=== PATIENT | male | born 1940 | race Caucasian/White ===

== ENCOUNTER 2016-12-04 05:53 | Inpatient (IN) | payer MEDICARE, OTHER ==
--- OUTSIDE RECORDS SUMMARY | 2016-12-04 05:57 | XMS REPORT | Continuity of Care Document ---
:1940 Author Organization [facility] ([facility]) Address [address] [place] [address] Phone [phone] Care Team Providers Name Role Phone Robbie Zarate Primary Care Provider [phone] Source Comments This disclosure is being made pursuant to the Care Everywhere program, applicable federal and state laws, and may not contain all informaitonavailable regarding this patient.[facility] ([facility]) Active Allergies and Adverse Reactions Allergen Noted Date Severity Reactions Comments Bee Stings Angioedema Throat swells up Bupropion Urticaria (Hives) Iodine Angioedema Zinc 12/08/2014 Unknown Current Medications Prescription Sig. Disp. Refills Start Date End Date Status lisinopril 5 mg tablet Take 5 mg by mouth 11/25/2013 Active daily SERTraline 25 mg tablet Take 25 mg by mouth 11/25/2013 Active daily triamcinolone 0.1 % apply by topical 11/25/2013 Active cream route 2 times every day a thin layer to the affected area(s) zolpiDEM (AMBIEN) 10 mg Take 10 mg by mouth 09/03/2008 Active tablet as instructed atorvastatin 10 mg Take 10 mg by mouth Active tablet every evening. esomeprazole 40 mg EC Take 40 mg by mouth Active capsule daily. meloxicam 7.5 mg tablet Take 7.5 mg by mouth Active daily. Active Problems Problem Noted Date Carotid arterial disease 12/04/2014 Overview: Formatting of this note may be different from the original. VASCULAR: Carotid Duplex (No evidence of stenosis bilaterally) - 08/23/2007 Carotid Duplex (Mild Disease in Bilateral ICAs, Vertebral: Bilateral Antegrade Flow) - 09/08/2008 Aortic stenosis 12/04/2014 Overview: Formatting of this note may be different from the original. ECHO/MUGA: Echo (LVSF normal, moderate MR, moderate AR) - 08/23/2007 Echo (LV normal, mild , mild-mod MR) - 11/18/2009 Echo (EF 0.70 (70%), Est RVSP 34 mmHg) - 08/17/2013 Unspecified closed fracture of ankle 10/03/2001 Coronary artery disease Overview: Formatting of this note may be different from the original. 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, dilated proximal aortic root ( moderate)) - 05/21/2006 ECHO/MUGA: Echo (LVSF normal, moderate MR, moderate AR) - 08/23/2007 Echo (LV normal, mild , mild-mod MR) - 11/18/2009 Echo (EF 0.70 (70%), Est RVSP 34 mmHg) - 08/17/2013 STRESS TESTS: Marcial MPI (EF 0.68, Normal study) - 11/11/2012 VASCULAR: Carotid Duplex (No evidence of stenosis bilaterally) - 08/23/2007 Carotid Duplex (Mild Disease in Bilateral ICAs, Vertebral: Bilateral Antegrade Flow) - 09/08/2008 Hypertension Most Recent Encounters Date Type Specialty Providers Description 09/12/2016 Lab Requisition Pathology [facility] Dx: Neoplasm of uncertain behavior of skin Social History Tobacco Use Types Packs/Day Years Used Date Former Smoker 30 Last Filed Vital Signs Vital Sign Reading Time Taken Blood Pressure 140/82 12/21/2015 9:22 AM CDT Pulse 60 12/21/2015 9:22 AM CDT Temperature - - Respiratory Rate - - Height 1.854 m (6' 0.99") 12/21/2015 9:22 AM CDT Weight 104.8 kg (231 lb 0.7 oz) 12/21/2015 9:22 AM CDT Body Mass Index 30.49 12/21/2015 9:22 AM CDT Oxygen Saturation - - Plan of Care Date Type Specialty Providers Description 02/13/2017 Appointment Heart and Vascular Kristi Foster MD Subj: Appointment [address] [place] [address] [phone] (Fax) Health Maintenance Due Date Last Done Comments Hepatitis B Vaccine (1 of 3 - Primary Series) 1940 Tdap Vaccine 1953 Lipid Disorder Screening 1960 Td Vaccine 1960 Colonoscopy 07/05/1992 Prostate Cancer Screening 1992 Zoster Vaccine 2002 Pneumococcal Vaccine (1 of 2 - PCV13) 2007 Influenza Vaccine: Seasonal (Season Ended) 2017 Results from Last 3 Months DERMATOPATHOLOGY EXAM (09/08/2016 10:30 AM) Component Value Range Case Report Surgical Pathology Case: [id number] Authorizing Provider:[facility] Collected: 09/08/2016 10:30 AM Pathologist: Candace Brown MD Received:09/12/2016 02:18 PM Specimen:Skin, other, specify, Nose Diagnosis Skin, nose, 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 I have personally reviewed this case and edited the report as necessary. Clinical Information Tissue source/site: Skin shave nose. Pertinent clinical history and findings: 0.2 cm erythematous papule. Clinical differential diagnosis: BCC vs SCC. Gross Description A.Received in formalin, in a container labeled Jordenbri Wes D, date of , and "Nose", is a 0.5 x 0.5 x 0.1 cm lemons shave biopsy. The specimen is inked, bisected and submitted entirely in A1. AJF/rls Microscopic Description Sections show a full thickness proliferation of atypical keratinocytes associated with overlying compact hyperkeratosis and parakeratosis.Margins appear uninvolved in the plane of sectioning. Performed by:Gonzalo Frank DO, R1/rls Specimen Skin - Skin, other, specify
[2016-12-04] MEDS ORDERED: MORPHINE SULFATE 15 MG TABLET.SA PO PRN (06:00)
[2016-12-04] MEDS ORDERED: ceFAZolin SODIUM 1 GM VIAL IV PRN (06:00)
[2016-12-04] MEDS ORDERED: RINGERS SOLUTION,LACTATED 1,000 ML IV PRN (06:00)
[2016-12-04] MEDS ORDERED: RINGERS SOLUTION,LACTATED 1,000 ML IV ONE (07:40)
[2016-12-04] MEDS ORDERED: diphenhydrAMINE HCL 50 MG/ML VIAL IV PRN ×2 (08:36→09:46)
[2016-12-04] MEDS ORDERED: HYDROmorphone HCL 1 MG/ML DISP.SYRIN IV PRN ×2 (08:36→09:46)
[2016-12-04] MEDS ORDERED: PROMETHAZINE HCL 12.5 MG in DEXTROSE 5 % IN WATER 50 ML IV PRN ×2 (08:36)
[2016-12-04] MEDS ORDERED: NALOXONE HCL 0.4 MG/ML VIAL IV PRN (08:36)
[2016-12-04] MEDS ORDERED: ONDANSETRON HCL/PF 2 MG/ML VIAL IV PRN ×2 (08:36→09:46)
[2016-12-04] MEDS: ROPIVACAINE HCL/PF 100 MG, KETOROLAC TROMETHAMINE 30 MG, EPINEPHrine 0.2 MG in NORMAL S... IJ PRN ×3 (08:52→09:40)
[2016-12-04] MEDS: TRANEXAMIC ACID 1,000 MG in NORMAL SALINE 100 ML IV PRN ×2 (08:53→09:18)
[2016-12-04] MEDS ORDERED: ACETAMINOPHEN 500 MG TABLET PO PRN (09:46)
[2016-12-04] MEDS ORDERED: ZOLPIDEM TARTRATE 5 MG TABLET PO PRN (09:46)
[2016-12-04] MEDS ORDERED: MAG HYDROX/ALUMINUM HYD/SIMETH 30 ML UDC PO PRN (09:46)
[2016-12-04] MEDS ORDERED: MAGNESIUM HYDROXIDE 30 ML UDC PO PRN (09:46)
[2016-12-04] MEDS ORDERED: PROMETHAZINE HCL 5 MG in DEXTROSE 5 % IN WATER 50 ML IV PRN ×2 (09:46)
[2016-12-04] MEDS ORDERED: TRIAMCINOLONE ACETONIDE 15 APPL TUBE TP PRN (09:48)
[2016-12-04] MEDS ORDERED: EPINEPHrine 0.3 MG DISP.SYRIN IM PRN (09:48)
--- NOTE | 2016-12-04 09:51 | OR ---
Operative Report - Dictated Report Narrative: Date: 12/04/2016 Preoperative diagnosis: Left hip degenerative joint disease. Postoperative diagnosis: Left hip degenerative joint disease. Procedure: Left Total hip arthroplasty. Surgeon: Farrukh Hsu M.D. Sales Recruiting Coordinator: Josh Valdez PA-C Anesthesia: Spinal and local periarticular joint injection. Complications: None Specimens: Bone for disposal. Estimated blood loss: 150 milliliters. Retained implants: Depuy [place] size 7 femoral stem high offset. Size 40 millimeter outside diameter 3-hole [place] Gription acetabular cup. 60 millimeter outside by 40 millimeter inside diameter highly cross-linked acetabular liner. 40 millimeter diameter +5 millimeter cobalt chromium femoral head. Cancellous 6.5mm screw 35 millimeter length Indications: Mr. Das is a 76-year-old gentleman who has had long-standing left hip pain. This patient was followed in my clinic for period of time with significant complaints of left hip pain consistent with arthritic changes. He failed conservative measures including but not limited to activity modification , passage of time, medications, and other conservative measures. Patient wished to proceed with surgical treatment. The risks, benefits, and alternatives were discussed in clinic. The risks of , blood clots, bleeding, infection, nerve/tendon blood vessel/ injury, malposition of components, dislocation and/or instability of joint, intraoperative fracture, postoperative limited range of motion, persistent pain, failure of components, and need for additional procedures. Patient wished to proceed. Consent was obtained after answering all questions. Procedure: After marking the correct extremity on the floor, the patient was taken to the operating room. A timeout was performed. IV antibiotics consisting of Ancef were administered prior to the procedure. A spinal anesthetic was induced by anesthesia. A Woodard catheter was inserted. The patient was then transitioned to a lateral position on a well-padded pegboard. An axillary roll was placed. The head was in neutral position. The non- operative down leg was well-padded with SCD and DISHA hose in place. The arms were supported and padded to protect from any undue pressure on the bony prominences and nerves. A well-padded anterior and posterior pelvic and chest posts were secured in order to maintain a stable position of the pelvis. This was placed so that the pelvis was perpendicular to the floor. The body was in line with the pelvis. Once it was felt that we had protected all the bony prominences and the patient was well secured with a safety belt as well, the leg was pre-scrubbed with alcohol, prepped and draped in a standard sterile fashion. A standard anterior lateral hip incision was marked out over the greater trochanter. Ioban drapes were then placed. The skin incision was then made. Sharp dissection with a scalpel utilizing cautery for hemostasis was carried out down to the gluteus and iliotibial band fascia. This was split in line with the skin incision. The greater trochanter bursa was excised. The anterior and posterior margins of the abductor tendon were identified. The anterior 1/2-1/3 of the tendon was tagged and reflected off the greater trochanter leaving a sleeve of tendon for repair at the completion of the case. This exposed the underlying hip joint capsule. A limb length stitch was placed in the skin and referencedd off a debbie on the greater trochanter for evaluation of intraoperative limb lengths. An inverted T-type capsulotomy was made extending this up to the brim of the acetabulum. Using Homans to assist with elevation of the soft tissues off the anterior, superior, and inferior aspects of the femoral neck, the hip was then placed in a figure 4 position and the femoral head was dislocated. With the leg in an externally rotated and adducted position, the cutting flag was utilized in order to debbie for a standard femoral neck cut approximately a fingerbreadth above the level of the lesser trochanter. This was done with reference to pre-operative films and overall alignment. This was done while protecting the surrounding soft tissues with Homans. The femoral head was then removed and sized for guidance on preparation of the acetabulum. It was noted that there was loss of articular cartilage on both the femoral head and weightbearing portions of the acetabulum. We then returned the leg to the table and turned our attention to the acetabulum. While protecting the surrounding soft tissues, the labrum and remaining tissue in the fovea were excised using a scalpel and cautery. A series of reamers up to size 60 millimeter were utilized to prepare the acetabulum. The final reamer had good purchase and exposed the bleeding subchondral bone. The acetabulum was then thoroughly irrigated ensuring that all bony and cartilaginous materials were removed, and the final acetabular shell was impacted into place. This was placed in approximately 45 degrees of abduction and 20 degrees of anteversion utilizing the outrigger and body axis for alignment. This had a good press fit. 1 6.5mm cancellous screw was placed in the superior posterior quadrant of the acetabulum. The shell was then thoroughly irrigated and the final polyethylene was impacted into place ensuring that it seated completely. This was then protected with a sponge while we returned our attention to the femur. With the leg in a figure 4 position, utilizing Homans for soft tissue protection , a box cutting osteotome, followed by Charnley awl, followed by serial reamers and broaches were utilized in order to prepare the femur. It was found that a size 7 broach gave good axial and rotational stability. The calcar reamer was utilized in order to clean up the cut edges. The proximal femur was visualized to ensure that there were no signs of fracture. A series of heads and necks were trialed. It was found that a high offset neck and a + 5 femoral head gave good overall stability. There was minimal longitudinal instability. With the leg in the position of sleep, the femoral head was well covered. Hip range of motion was able to reach full extension and external rotation to greater than 75 degrees prior to impingement along the posterior acetabulum. The hip was able to be flexed to greater than 90 degrees with internal rotation greater than 60 degrees prior to anterior impingement. The limb lengths were near equal based on comparison to the contralateral side and the prior placed limb length stitch. At this point it was felt these were the appropriately sized femoral components as well as neck and femoral head. The trial implants were removed. The femur was thoroughly irrigated. The final implants were impacted into place, and the hip was reduced. After ensuring that there was no damage to the proximal femur , the standard periarticular joint injection of ropivacaine, Toradol, and epinephrine were injected into the joint capsule and surrounding soft tissues. Anesthesia then administered intravenous tranexamic acid. The capsule was repaired with a single interrupted #1 Vicryl. The abductor tendon was repaired to the greater trochanter utilizing #5 Ethibond through drill holes. This was oversewn with #1 Vicryl. The fascia was closed with interrupted #1 Vicryl. The wounds were thoroughly irrigated as we closed in layers. The deep and subcutaneous fat layers were closed with 0 and 3-0 Vicryl respectively. The subcutaneous tissue was closed with a running 3-0 Vicryl and 3-0 Monocryl with Prineo Dermabond dressing. All sponge, needle, blade, and instrument counts were correct prior to closing the wounds. Sterile dressings consisting of 4 x 4 's, ABD, and tape were applied. The patient was awoken and transferred to her hospital bed and then to the postanesthesia care unit in stable condition. Postoperative condition: The plan is to admit to the medical/surgical inpatient floor postoperatively. There will be a projected 2 to 4 day hospital stay. Postoperatively 24 hours of IV antibiotics, pain control, physical therapy, occupational therapy, and medical comanagement will be utilized. Patient will be weightbearing as tolerated with anterior hip precautions. Postoperative films will be obtained in the recovery room.
[2016-12-04] MEDS: KETOROLAC TROMETHAMINE 15 MG/ML VIAL IV SCH ×3 (11:04→22:06)
[2016-12-04] MEDS: oxyCODONE HCL/ACETAMINOPHEN 1 TAB TABLET PO PRN ×3 (12:41→20:50)
[2016-12-04] MEDS: ceFAZolin SODIUM 1 GM in DEXTROSE 5 % IN WATER 100 ML IV SCH ×4 (13:47→20:45)
[2016-12-04] MEDS: DEXTROSE 5%-LACTATED RINGERS 1,000 ML IV PRN (19:11)
--- NOTE | 2016-12-04 20:29 | PN ---
<Pamela Sharma - Last Filed: 12/04/16 20:44> Subjective - Date and Time Seen Date: 12/04/16 Time: 20:29 Subjective Narrative: s/p Left total hip today. doing well. denies any pain. vomit x1 earlier in the day but denies any nausea now. denies needs. Objective - Review of Systems Generalized/Overall Review: Reports: No Symptoms Reported EENTM: Reports: No Symptoms Reported Respiratory: Reports: No Symptoms Reported Cardiac: Reports: No Symptoms Reported Abdominal: Reports: Vomiting. Denies: Hematemesis, Abdominal Pain, Bright blood from rectum Genitourinary Symptoms: Reports: No Symptoms Reported Musculoskeletal Complaints: Reports: No Symptoms Reported Neurological: Reports: No Symptoms Reported Skin: Reports: No Symptoms Reported Endocrine: Reports: No Symptoms Reported Misc: All systems neg except as marked - Vitals Vitals: Last Vital Signs Temp 36.3 C L 12/04/16 16:35 Pulse 55 L 12/04/16 16:35 Resp 16 12/04/16 16:35 BP 144/78 12/04/16 16:35 Pulse Ox 99 12/04/16 16:35 - Exam Constitutional: Present: Alert, Oriented x3, Cooperative, No distress ENT Exam: Present: hearing grossly normal Neck: Present: full range of motion, supple Breasts: Present: Exam deferred Respiratory: Present: chest non-tender, lungs clear, normal breath sounds, no respiratory distress, no accessory muscle use Cardiovascular/Chest: Present: normal peripheral pulses, regular rate, rhythm, no chest tenderness, no edema Abdomen: Present: soft, nontender, nondistended /Rectal: Present: Exam deferred Extremity: Present: no pedal edema, no calf tenderness Skin Exam: Present: normal color, warm/dry, no cyanosis Cauti Physician Documentation - Urinary Catheter Management Urethral (Woodard) Urethral Indwelling: Yes Reason for Continuing Indwelling Catheter: Surgical Procedure Date of Insertion: 12/04/16 Time of Insertion: 08:00 Assessment/Plan Plan Narrative: s/p left total hip - per orthopaedics, appreciate their help. - anticoagulation per ortho - PT/OT. - encourage ambulation - incentive spirometer q1 hour while awake - encourage turn, cough and deep breath - encourage optimal pain management HTN - vital signs q 4 hours Chronic stable medical conditions - CAD, CVA, HTN, HLD, ZITA, GERD Code status: full code VTE: lovenox / SCDs while in bed GI proph: protonix po. - Problems/Diagnosis (1) Status post total hip replacement, left Problem: Acute (2) CAD (coronary artery disease) Problem: Acute QualifierTitle: Coronary Disease-Associated Artery/Lesion type: [place] artery [place] vs. transplanted heart: [place] heart Associated angina: angina presence unspecified Qualified Code(s): I25.10 - Atherosclerotic heart disease of [place] coronary artery without angina pectoris (3) CVA (cerebral vascular accident) Problem: Chronic QualifierTitle: CVA mechanism: unspecified Qualified Code(s): I63.9 - Cerebral infarction, unspecified (4) HTN (hypertension) Problem: Chronic QualifierTitle: Hypertension type: essential hypertension Qualified Code( s): I10 - Essential (primary) hypertension (5) HLD (hyperlipidemia) Problem: Chronic QualifierTitle: Hyperlipidemia type: unspecified Qualified Code(s): E78.5 - Hyperlipidemia, unspecified (6) ZITA (obstructive sleep apnea) Problem: Chronic (7) GERD (gastroesophageal reflux disease) Problem: Chronic QualifierTitle: Esophagitis presence: esophagitis presence not specified Qualified Code(s): K21.9 - Gastro-esophageal reflux disease without esophagitis <Robbie Zarate - Last Filed: 12/06/16 07:17> Objective Objective Narrative: See my progress note for details - Vitals Vitals: Last Vital Signs Temp 36.9 C 12/06/16 06:32 Pulse 74 12/06/16 06:32 Resp 16 12/06/16 06:32 BP 150/83 12/06/16 06:32 Pulse Ox 90 12/06/16 06:32 - Abnormal Lab Findings Abnormal Lab Findings: Abnormal Lab Results 12/06/16 12/06/16 Range/Units 05:16 05:16 RBC 3.59 L (4.7-6.0) M/mm3 Hgb 10.9 L (13.5-18.0) gm/dL Hct 33.9 L (42.0-52.0) % Plt Count 121 L (150-450) K/mm3 MPV 9.9 H (6.0-9.5) fl Est GFR (Non-Af Amer) 59 L (60-130) mL/min Assessment/Plan - Problems/Diagnosis (1) Insomnia Problem: Chronic Qualifiers: Insomnia type: primary Qualified Code(s): F51.01 - Primary insomnia (2) History of total left hip arthroplasty Problem: Acute (3) CVA (cerebral vascular accident) Problem: Chronic Qualifiers: CVA mechanism: unspecified Qualified Code(s): I63.9 - Cerebral infarction, unspecified (4) GERD (gastroesophageal reflux disease) Problem: Chronic Qualifiers: Esophagitis presence: esophagitis presence not specified Qualified Code(s) : K21.9 - Gastro-esophageal reflux disease without esophagitis (5) HLD (hyperlipidemia) Problem: Chronic Qualifiers: Hyperlipidemia type: unspecified Qualified Code(s): E78.5 - Hyperlipidemia , unspecified (6) HTN (hypertension) Problem: Chronic Qualifiers: Hypertension type: essential hypertension Qualified Code(s): I10 - Essential (primary) hypertension (7) Depression Problem: Chronic Qualifiers: Depression Type: major depressive disorder Active/Remission status: in full remission (8) Discharge planning issues Problem: Acute
[2016-12-04] MEDS: MORPHINE SULFATE 15 MG TABLET.SA PO SCH (20:45)
[2016-12-04] MEDS: SENNOSIDES/DOCUSATE SODIUM 1 TAB TABLET PO SCH (20:53)
[2016-12-04] MEDS: ROSUVASTATIN CALCIUM 10 MG TABLET PO SCH (20:54)
[2016-12-04] MEDS ORDERED: SERTRALINE HCL 50 MG TABLET PO SCH (21:00)
--- NOTE | 2016-12-04 21:01 | PN ---
Subjective - Date and Time Seen Date: 12/04/16 Time: 16:45 Subjective Narrative: No complaints. Pain is tolerable. Denies CP/SOB. Does state that he has to move his feet all the time, which has occurred ever since he had his stroke and possibly since he started the sertraline. Objective - Review of Systems Generalized/Overall Review: Reports: No Symptoms Reported EENTM: Reports: No Symptoms Reported Respiratory: Reports: No Symptoms Reported Cardiac: Reports: No Symptoms Reported Abdominal: Reports: No Symptoms Reported Genitourinary Symptoms: Reports: No Symptoms Reported Musculoskeletal Complaints: Reports: No Symptoms Reported Neurological: Reports: No Symptoms Reported Skin: Reports: No Symptoms Reported Endocrine: Reports: No Symptoms Reported - Vitals Vitals: Last Vital Signs Temp 36.3 C L 12/04/16 16:35 Pulse 55 L 12/04/16 16:35 Resp 16 12/04/16 16:35 BP 144/78 12/04/16 16:35 Pulse Ox 99 12/04/16 16:35 - Exam Constitutional: Present: Alert, Oriented x3, No distress ENT Exam: Present: hearing grossly normal Respiratory: Present: normal breath sounds, no respiratory distress Cardiovascular/Chest: Present: regular rate, rhythm, edema Abdomen: Present: Normal bowel sounds, soft, nontender Extremity: Present: non-tender, no pedal edema, no calf tenderness Neurologic: Present: normal mood/affect, oriented x 3 Appearance: Present: appropriate appearance, appropriate insight Eye contact: Present: cooperative, good eye contact, normal speech Thoughts: Present: normal thought pattern, no apparent hallucination Cauti Physician Documentation - Urinary Catheter Management Urethral (Higgins) Urethral Indwelling: Yes Reason for Continuing Indwelling Catheter: Surgical Procedure Date of Insertion: 12/04/16 Time of Insertion: 08:00 Assessment /Plan - Assessment/Plan Assessment: Hypertension: stable no med changes. Depression: stable, possible SE of LE movement from sertraline. reduce to 12.5mg S/P LTHA: doing well post op. indwelling higgins. rehab per ortho. Insomnia: continue zolpidem Constipation: continue miralax Discharge planning: d/w home when rehab is going well and pt. able to ambulate well enough to be independent at home.
[2016-12-04] MEDS: SERTRALINE HCL 50 MG TABLET PO SCH (21:09)
[2016-12-04] MEDS: ZOLPIDEM TARTRATE 10 MG TABLET PO SCH (22:06)
[2016-12-05] MEDS: ceFAZolin SODIUM 1 GM in DEXTROSE 5 % IN WATER 100 ML IV SCH ×2 (02:29)
[2016-12-05] MEDS: oxyCODONE HCL/ACETAMINOPHEN 1 TAB TABLET PO PRN ×3 (02:29→22:09)
[2016-12-05] MEDS: KETOROLAC TROMETHAMINE 15 MG/ML VIAL IV SCH ×4 (04:21→22:09)
[2016-12-05] MEDS: DEXTROSE 5%-LACTATED RINGERS 1,000 ML IV PRN (04:22)
[2016-12-05 05:41] LABS: Hematocrit 33.3 % (42.0-52.0); Hemoglobin 10.7 gm/dL (13.5-18.0); Mean Cell Volume 94.3 fl (78-100); Mean Corpuscular Hemoglobin 30.3 pg (27-31); Mean Corpuscular Hgb Conc 32.1 g/dl (32-36); Mean Platelet Volume 10.4 fl (6.0-9.5); Platelet Count 122 K/mm3 (150-450); Red Blood Count 3.53 M/mm3 (4.7-6.0); Red Cell Distribution Width 13.8 % (11.5-14.0); White Blood Count 7.1 K/mm3 (4.0-10.5)
[2016-12-05 05:51] LABS: Anion Gap 7.1 mmol/L (6.8-13.8); BUN/Creatinine Ratio 13.9 (9.0-21.6); Calcium * 8.2 mg/dL (7.9-10.9); Carbon Dioxide 32.3 mmol/L (24-32.6); Estimated Creat Clear 65.5; Potassium 4.4 mmol/L (3.4-4.6)
[2016-12-05] MEDS: PANTOPRAZOLE SODIUM 40 MG TABLET.EC PO SCH (06:57)
--- NOTE | 2016-12-05 07:11 | PN ---
Subjective - Date and Time Seen Date: 12/05/16 Time: 07:01 Subjective Narrative: Pt. drowsy this am, but without complaint and no concerns by . He wakes up and responds to voice, but quickly closes eyes and rests again after answering questions. Denies CP/SOB/N/V or hip pain. Objective - Review of Systems Generalized/Overall Review: Reports: No Symptoms Reported EENTM: Reports: No Symptoms Reported Respiratory: Reports: No Symptoms Reported Cardiac: Reports: No Symptoms Reported Abdominal: Reports: No Symptoms Reported Genitourinary Symptoms: Reports: No Symptoms Reported Musculoskeletal Complaints: Reports: No Symptoms Reported Neurological: Reports: No Symptoms Reported Skin: Reports: No Symptoms Reported Endocrine: Reports: No Symptoms Reported - Vitals Vitals: Last Vital Signs Temp 36.4 C L 12/05/16 06:27 Pulse 58 L 12/05/16 06:27 Resp 16 12/05/16 06:27 BP 139/58 12/05/16 06:27 Pulse Ox 98 12/05/16 06:27 - Abnormal Lab Findings Abnormal Lab Findings: Abnormal Lab Results 12/05/16 12/05/16 Range/Units 05:00 05:00 RBC 3.53 L (4.7-6.0) M/mm3 Hgb 10.7 L (13.5-18.0) gm/dL Hct 33.3 L (42.0-52.0) % Plt Count 122 L (150-450) K/mm3 MPV 10.4 H (6.0-9.5) fl Random Glucose 122 H (70-110) mg/dL - Exam Constitutional: Present: Alert, Oriented x3, Cooperative, No distress ENT Exam: Present: hearing grossly normal Neck: Present: supple Respiratory: Present: lungs clear, normal breath sounds, no respiratory distress , no accessory muscle use Cardiovascular/Chest: Present: regular rate, rhythm, no murmur Abdomen: Present: Normal bowel sounds, soft, nontender, nondistended, no rebound tenderness, no hepatospenomegaly Extremity: Present: normal inspection, no pedal edema, no calf tenderness, normal capillary refill Skin Exam: Present: normal color, warm/dry Neurologic: Present: other - drowsy, but responsive to voice Appearance: Present: appropriate insight, no memory impairment Eye contact: Present: cooperative, decreased rate of speech Thoughts: Present: normal thought pattern, no apparent hallucination Cauti Physician Documentation - Urinary Catheter Management Urethral (Higgins) Urethral Indwelling: Yes Reason for Continuing Indwelling Catheter: Surgical Procedure Date of Insertion: 12/04/16 Time of Insertion: 08:00 Assessment/Plan - Problems/Diagnosis (1) Insomnia Problem: Chronic Qualifiers: Insomnia type: primary Qualified Code(s): F51.01 - Primary insomnia Narrative: continue zolpidem for now, but may hold this tonight to see how he does without it given the pain meds he's taking. (2) History of total left hip arthroplasty Problem: Acute Narrative: doing well post op, pain appears to be well controlled. will continue MsContin , though limit duration to 2 days. If drowsiness continues will stop this and just do prn IV morphine and oral percocet. Rehab per ortho, along with d/c of higgins. (3) CVA (cerebral vascular accident) Problem: Chronic Qualifiers: CVA mechanism: unspecified Qualified Code(s): I63.9 - Cerebral infarction, unspecified Narrative: doing well post CVA, no med changes at this time, no issues with this. (4) GERD (gastroesophageal reflux disease) Problem: Chronic Qualifiers: Esophagitis presence: esophagitis presence not specified Qualified Code(s) : K21.9 - Gastro-esophageal reflux disease without esophagitis Narrative: continue protonix unchanged (5) HLD (hyperlipidemia) Problem: Chronic Qualifiers: Hyperlipidemia type: unspecified Qualified Code(s): E78.5 - Hyperlipidemia , unspecified Narrative: continue crestor at 5mg (6) HTN (hypertension) Problem: Chronic Qualifiers: Hypertension type: essential hypertension Qualified Code(s): I10 - Essential (primary) hypertension Narrative: BP's variable, but overall are ok. no changes in medication at this time, continue lisinopril at 10mg daily. (7) Depression Problem: Chronic Qualifiers: Depression Type: major depressive disorder Active/Remission status: in full remission Narrative: will continue decreased sertraline at 12.5mg, consider stopping altogether. (8) Discharge planning issues Problem: Acute Narrative: discharge per ortho, depending on how he rehabs.
--- NOTE | 2016-12-05 08:11 | PN ---
Subjective - Date and Time Seen Date: 12/05/16 Time: 08:08 Subjective Narrative: Patient reports pain controlled. No nausea or vomiting. Reports feels "sleepy ". Reports did well getting up with PT this am. No complaints. Objective Objective Narrative: Up in chair. N/V intact PF/DF ankle LLE. Able to wiggle toes. Calves supple. Bandages C/D/I. - Vitals Vitals: Last Vital Signs Temp 36.4 C L 12/05/16 06:27 Pulse 58 L 12/05/16 06:27 Resp 16 12/05/16 06:27 BP 139/58 12/05/16 06:27 Pulse Ox 98 12/05/16 06:27 - Abnormal Lab Findings Abnormal Lab Findings: Abnormal Lab Results 12/05/16 12/05/16 Range/Units 05:00 05:00 RBC 3.53 L (4.7-6.0) M/mm3 Hgb 10.7 L (13.5-18.0) gm/dL Hct 33.3 L (42.0-52.0) % Plt Count 122 L (150-450) K/mm3 MPV 10.4 H (6.0-9.5) fl Random Glucose 122 H (70-110) mg/dL - Exam Constitutional: Present: Alert, Oriented x3, Cooperative, No distress Cauti Physician Documentation - Urinary Catheter Management Urethral (Woodard) Urethral Indwelling: Yes Date of Insertion: 12/04/16 Time of Insertion: 08:00 Assessment/Plan - Problems/Diagnosis (1) Anemia due to acute blood loss Problem: Acute Narrative: Asymptomatic. Recheck labs tomorrow. (2) CAD (coronary artery disease) Problem: Chronic Qualifiers: Coronary Disease-Associated Artery/Lesion type: [place] artery [place] vs. transplanted heart: [place] heart Associated angina: angina presence unspecified Qualified Code(s): I25.10 - Atherosclerotic heart disease of [place] coronary artery without angina pectoris (3) Status post total hip replacement, left Problem: Acute Narrative: PT, anticoagulation, pain control. (4) Depression Problem: Chronic Qualifiers: Depression Type: major depressive disorder Active/Remission status: in full remission (5) GERD (gastroesophageal reflux disease) Problem: Chronic Qualifiers: Esophagitis presence: esophagitis presence not specified Qualified Code(s) : K21.9 - Gastro-esophageal reflux disease without esophagitis (6) HLD (hyperlipidemia) Problem: Chronic Qualifiers: Hyperlipidemia type: unspecified Qualified Code(s): E78.5 - Hyperlipidemia , unspecified
[2016-12-05] MEDS ORDERED: ENOXAPARIN SODIUM 40 MG/0.4 ML SYRG SC SCH (08:46)
[2016-12-05] MEDS: MORPHINE SULFATE 15 MG TABLET.SA PO SCH ×2 (09:19→20:26)
[2016-12-05] MEDS: LISINOPRIL 10 MG TABLET PO SCH (09:19)
[2016-12-05] MEDS: RIVAROXABAN 20 MG TABLET PO SCH (09:19)
[2016-12-05] MEDS: POLYETHYLENE GLYCOL 3350 119 GM BTL PO SCH (09:19)
[2016-12-05] MEDS: SERTRALINE HCL 50 MG TABLET PO SCH (20:26)
[2016-12-05] MEDS: SENNOSIDES/DOCUSATE SODIUM 1 TAB TABLET PO SCH (20:27)
[2016-12-05] MEDS: ROSUVASTATIN CALCIUM 10 MG TABLET PO SCH (20:27)
[2016-12-05] MEDS: ZOLPIDEM TARTRATE 10 MG TABLET PO SCH (22:09)
[2016-12-06] MEDS: KETOROLAC TROMETHAMINE 15 MG/ML VIAL IV SCH (04:42)
[2016-12-06 05:23] LABS: Hematocrit 33.9 % (42.0-52.0); Hemoglobin 10.9 gm/dL (13.5-18.0); Mean Cell Volume 94.4 fl (78-100); Mean Corpuscular Hemoglobin 30.4 pg (27-31); Mean Corpuscular Hgb Conc 32.2 g/dl (32-36); Mean Platelet Volume 9.9 fl (6.0-9.5); Platelet Count 121 K/mm3 (150-450); Red Blood Count 3.59 M/mm3 (4.7-6.0); Red Cell Distribution Width 13.7 % (11.5-14.0); White Blood Count 7.3 K/mm3 (4.0-10.5)
[2016-12-06 05:35] LABS: Anion Gap 8.3 mmol/L (6.8-13.8); BUN/Creatinine Ratio 13.5 (9.0-21.6); Calcium * 8.4 mg/dL (7.9-10.9); Carbon Dioxide 31.3 mmol/L (24-32.6); Estimated Creat Clear 59.8; Potassium 4.6 mmol/L (3.4-4.6)
[2016-12-06] MEDS: PANTOPRAZOLE SODIUM 40 MG TABLET.EC PO SCH (06:46)
--- NOTE | 2016-12-06 07:24 | PN ---
Subjective - Date and Time Seen Date: 12/06/16 Time: 07:19 Subjective Narrative: Pain controlled, needs occ. prn percocet but otherwise has been doing ok with Ms Alona, though it makes him sleepy. Hasn't had a BM Objective - Review of Systems Generalized/Overall Review: Reports: Fatigue. Denies: Chills, Fever EENTM: Reports: No Symptoms Reported Respiratory: Reports: No Symptoms Reported. Denies: Shortness of Breath Cardiac: Reports: No Symptoms Reported. Denies: Chest Pain Abdominal: Reports: No Symptoms Reported Genitourinary Symptoms: Reports: No Symptoms Reported Musculoskeletal Complaints: Reports: No Symptoms Reported Neurological: Reports: No Symptoms Reported Skin: Reports: No Symptoms Reported Endocrine: Reports: No Symptoms Reported - Vitals Vitals: Last Vital Signs Temp 36.9 C 12/06/16 06:32 Pulse 74 12/06/16 06:32 Resp 16 12/06/16 06:32 BP 150/83 12/06/16 06:32 Pulse Ox 90 12/06/16 06:32 - Abnormal Lab Findings Abnormal Lab Findings: Abnormal Lab Results 12/06/16 12/06/16 Range/Units 05:16 05:16 RBC 3.59 L (4.7-6.0) M/mm3 Hgb 10.9 L (13.5-18.0) gm/dL Hct 33.9 L (42.0-52.0) % Plt Count 121 L (150-450) K/mm3 MPV 9.9 H (6.0-9.5) fl Est GFR (Non-Af Amer) 59 L (60-130) mL/min - Exam Constitutional: Present: Alert, Oriented x3, Cooperative, Well developed, No distress ENT Exam: Present: hearing grossly normal Neck: Present: supple Respiratory: Present: lungs clear, normal breath sounds, no respiratory distress , no accessory muscle use Cardiovascular/Chest: Present: regular rate, rhythm, systolic murmur - 2/6 LUSB Abdomen: Present: Normal bowel sounds, soft, nontender, nondistended, no rebound tenderness, no hepatospenomegaly Extremity: Present: no calf tenderness Skin Exam: Present: normal color, warm/dry Neurologic: Present: normal mood/affect, oriented x 3 Appearance: Present: appropriate appearance, appropriate insight, neat Eye contact: Present: cooperative, good eye contact, normal speech Thoughts: Present: normal thought pattern, no apparent hallucination Cauti Physician Documentation - Urinary Catheter Management Urethral (Woodard) Urethral Indwelling: No Date of Insertion: 12/04/16 Time of Insertion: 08:00 Date of Removal: 12/05/16 Time of Removal: 07: Assessment/Plan - Problems/Diagnosis (1) Insomnia Problem: Chronic Qualifiers: Insomnia type: primary Qualified Code(s): F51.01 - Primary insomnia Narrative: stable no changes (2) History of total left hip arthroplasty Problem: Acute Narrative: rehabbing well. continue per post op protocol and ortho (3) CVA (cerebral vascular accident) Problem: Chronic Qualifiers: CVA mechanism: unspecified Qualified Code(s): I63.9 - Cerebral infarction, unspecified Narrative: continue ASA daily (4) GERD (gastroesophageal reflux disease) Problem: Chronic Qualifiers: Esophagitis presence: esophagitis presence not specified Qualified Code(s) : K21.9 - Gastro-esophageal reflux disease without esophagitis Narrative: continue pantoprozole unchanged (5) HLD (hyperlipidemia) Problem: Chronic Qualifiers: Hyperlipidemia type: unspecified Qualified Code(s): E78.5 - Hyperlipidemia , unspecified Narrative: no changes (6) HTN (hypertension) Problem: Chronic Qualifiers: Hypertension type: essential hypertension Qualified Code(s): I10 - Essential (primary) hypertension Narrative: BP's running high at times. will continue to monitor for now, but because they are running in the 120's at times, I don't want to increase lisinopril quite yet. Will see him in close f/u outpt to see if they remain high. (7) Depression Problem: Chronic Qualifiers: Depression Type: major depressive disorder Active/Remission status: in full remission Narrative: stable continue 12.5mg dose for now. consider d/c at f/u outpt. (8) Discharge planning issues Problem: Acute Narrative: pt. medically is stable, can discharge home at any time ortho feels he is independent enough to go home. (9) Anemia due to acute blood loss Problem: Acute Narrative: stable post op. could be causing some increase in BP. will add PNV with iron to regimen. (10) Constipation Problem: Acute Qualifiers: Constipation type: slow transit constipation Qualified Code(s): K59.01 - Slow transit constipation Narrative: continue miralax. would give dose of MOM to him today (it is written prn)
[2016-12-06] MEDS ORDERED: PRENATAL VIT#96/FERROUS FUM/FA 1 TAB TABLET PO SCH (09:00)
[2016-12-06] MEDS: POLYETHYLENE GLYCOL 3350 119 GM BTL PO SCH (09:19)
[2016-12-06] MEDS: LISINOPRIL 10 MG TABLET PO SCH (09:21)
[2016-12-06] MEDS: RIVAROXABAN 20 MG TABLET PO SCH (09:21)
[2016-12-06 10:07] VITALS: BP 125/54
--- NOTE | 2016-12-06 13:06 | DS ---
(1) Anemia due to acute blood loss Problem: Acute (2) CAD (coronary artery disease) Problem: Chronic Qualifiers: Coronary Disease-Associated Artery/Lesion type: [place] artery [place] vs. transplanted heart: [place] heart Associated angina: angina presence unspecified Qualified Code(s): I25.10 - Atherosclerotic heart disease of [place] coronary artery without angina pectoris (3) Status post total hip replacement, left Problem: Acute (4) Depression Problem: Chronic Qualifiers: Depression Type: major depressive disorder Active/Remission status: in full remission (5) GERD (gastroesophageal reflux disease) Problem: Chronic Qualifiers: Esophagitis presence: esophagitis presence not specified Qualified Code(s) : K21.9 - Gastro-esophageal reflux disease without esophagitis (6) HLD (hyperlipidemia) Problem: Chronic Qualifiers: Hyperlipidemia type: unspecified Qualified Code(s): E78.5 - Hyperlipidemia , unspecified Description of Stay: Mr. Das was admitted to the floor after undergoing left total hip arthroplasty. Tolerated this well. Was admitted to the floor postoperatively for 24 hours of IV antibiotics, pain control, medical comanagement, and occupational and physical therapy. OT and PT were consulted to assist with activities of daily living and ambulation. Was made weightbearing as tolerated with range of motion as tolerated. Pain was initially controlled with IV regimen. This was transitioned to oral once tolerating a by mouth intake. Was resumed on home diet and medications. Had a Woodard catheter inserted and the operating room which was discontinued on postoperative day 1. A drain was placed intraoperatively into the knee which was discontinued on postoperative day 1. Lovenox SCD and DISHA hose were utilized for DVT prophylaxis. Vital signs remained stable to the hospital course. Serial labs were obtained which showed a final hemoglobin of 10.9 grams. BMP was reviewed and was stable. Physical examination throughout the hospital course showed an extremity that had sensation that was intact to light touch, palpable pulses, a benign wound, motor intact to the toes, ankle, and knee. Once an oral pain regimen was tolerated and physical therapy goals were met, it was felt that they were stable for discharge to home. Instructions: Continue with weightbearing as tolerated and range of motion as tolerated. It is OK to shower on the wound if it is not draining. If you note any drainage or for comfort you can cover with dry gauze and tape. Change every 2-3 days as needed. Continue with physical therapy. Continue with hip precautions. Resume home diet. Report any fever over 101.5 Fahrenheit, uncontrolled pain, increased drainage, foul odor of drainage, new or increased calf pain or shortness of breath, or any other significant complaints. A 325mg dialy aspirin will be started after finishing anticoagulation if not allergic. Continue with DISHA hose on the operative extremity until instructed otherwise. No driving until instructed otherwise. Follow up in approximately 10-14 days. Procedures Performed: see notes below List Procedures: Left total hip arthroplasty Discharge Disposition: Home self care Disposition: Home self-care Condition: Good Discharge Activity: Weight bearing Discharge Diet: Low fat/chol Referrals: Robbie Zarate MD [Primary Care Provider] - Additional Patient Instructions (free text): Follow up out patient Physical Therapy at [facility] on SundayDecember 08 at 100:00 am. Follow up Orthopedic appt. with Dr. Hsu December 21 at 9:00 am. Prescriptions (Any new or edited meds): Rivaroxaban [Xarelto] 10 mg PO DAILY #7 tablet Sennosides/Docusate Sodium [Senokot-S] 2 tab PO HS #30 tablet oxyCODONE HCL/ACETAMINOPHEN [Percocet 5 MG/325 MG] 2 tab PO Q4H PRN #90 tablet PRN Reason: Moderate Pain Complete Home Medications List: Complete Home Medication List: Polyethylene Glycol 3350 [Miralax] 17 gm PO DAILY 03/18/13 Triamcinolone Acetonide [Kenalog 0.025%] 1 appl TP BID PRN 03/18/13 Zolpidem Tartrate 10 mg PO HS 03/18/13 Sertraline HCl 25 mg PO HS 08/25/13 EPINEPHrine [Epipen 2-Cosmo] 0.3 mg IM ONCE PRN 04/20/15 Atorvastatin Calcium [Lipitor] 10 mg PO DAILY 10/31/16 Lisinopril [Zestril] 10 mg PO DAILY 10/31/16 Rivaroxaban [Xarelto] 10 mg PO DAILY #7 tablet 12/06/16 Sennosides/Docusate Sodium [Senokot-S] 2 tab PO HS #30 tablet 12/06/16 oxyCODONE HCL/ACETAMINOPHEN [Percocet 5 MG/325 MG] 2 tab PO Q4H PRN #90 tablet 12/06/16
[2016-12-06] MEDS: oxyCODONE HCL/ACETAMINOPHEN 1 TAB TABLET PO PRN (14:20)
== END 2016-12-06 14:45 | disposition home or self-care (01) | DRG 470 ==
LOC: MS 05:53
PROVIDERS: ADMIT Orthopaedic Surgery; ATTEND Orthopaedic Surgery
PROC: 0SRB0JZ Replacement of Left Hip Joint with Synthetic Substitute, Open Approach (ICD-10-PCS; principal; 2016-12-04 08:00)
DX: M16.12 Unilateral primary osteoarthritis, left hip (principal); D62 Acute posthemorrhagic anemia; F51.01 Primary insomnia; I25.10 Atherosclerotic heart disease of native coronary artery without angina pectoris; I10 Essential (primary) hypertension; E78.5 Hyperlipidemia, unspecified; K21.9 Gastro-esophageal reflux disease without esophagitis; F32.9 Major depressive disorder, single episode, unspecified; Z86.73 Personal history of transient ischemic attack (TIA), and cerebral infarction without residual deficits
CPT/HCPCS: 27130; 36415; 72170; 73502; 80048; 85027; 97110; 97116; 97161; 97165; 97530; 97535; J2405

== ENCOUNTER 2018-02-25 12:58 | Observation (INO) ==
[2018-02-25 13:35] LABS: Hematocrit 38.6 % (42.0-52.0); Hemoglobin 12.5 gm/dL (13.5-18.0); Mean Cell Volume 91.5 fl (78-100); Mean Corpuscular Hemoglobin 29.6 pg (27-31); Mean Corpuscular Hgb Conc 32.4 g/dl (32-36); Mean Platelet Volume 10.1 fl (8-11.3); Neutrophil # 4.2 K/mm3 (1.3-6.0); Neutrophil % 67.5 % (42-75.0); Platelet Count 154 K/mm3 (150-450); Red Blood Count 4.22 M/mm3 (4.7-6.0); Red Cell Distribution Width 13.9 % (11.5-14.0); White Blood Count 6.3 K/mm3 (4.0-10.5)
[2018-02-25 13:43] LABS: INR 1.04 INR (0.90-1.10); Partial Thrombolplastin Time 25.7 Seconds (24-32); Prothrombin Time (Patient) 10.4 Seconds (9.0-11.0)
[2018-02-25 13:50] LABS: Albumin * 3.2 gm/dl (3.4-5.0); Anion Gap 10.2 mmol/L (6.8-13.8); BUN/Creatinine Ratio 15.3 (9.0-21.6); Bilirubin, Total 0.6 mg/dL (0.0-1.1); Calcium * 8.7 mg/dL (7.9-10.9); Carbon Dioxide 25.3 mmol/L (24-32.6); Potassium 4.5 mmol/L (3.4-4.6); Total Protein 6.7 gm/dL (6.2-8.2)
[2018-02-25 13:53] LABS: Troponin I 0.041 ng/mL (0.00-0.10)
--- NOTE | 2018-02-25 13:59 | ERNOTE ---
Syncope ER HPI Date of Service: 02/25/18 Stated Complaint: FAINTING Time Seen by Provider: 02/25/18 13:42 Source: patient, family, RN notes reviewed, past records Exam Limitations: no limitations Immunizations: IMMUNIZATION HX Immunizations Up to Date Yes History of Influenza Vaccine Yes Hx Pneumococcal Vaccination Yes Allergies/Adverse Reactions: Allergies bupropion HCl [From Zyban] Allergy (Mild, Verified 02/25/18 13:14) rash/hives Iodine and Iodide Containing Produc Allergy (Mild, Verified 02/25/18 13:14) Itching mupirocin [From Bactroban] Allergy (Mild, Verified 02/25/18 13:14) BLISTERS mupirocin calcium [From Bactroban] Allergy (Mild, Verified 02/25/18 13:14) BLISTERS zinc Allergy (Mild, Verified 02/25/18 13:14) TOPICAL CAUSES RASH Iodinated Contrast- Oral and IV Dye Allergy (Verified 02/25/18 13:14) Home Medications: HOME MEDICATIONS Polyethylene Glycol 3350 [Miralax] 17 gm PO DAILY PRN 03/18/13 [Last Taken 08/25] Triamcinolone Acetonide [Kenalog 0.025% Ointment] 1 appl TP BID PRN 03/18/13 [ Last Taken 12/03/16 21:00] Zolpidem Tartrate 10 mg PO HS 03/18/13 [Last Taken 12/03/16 21:00] EPINEPHrine [Epipen 2-Cosmo] 0.3 mg IM ONCE PRN 04/20/15 [Last Taken Unknown] Atorvastatin Calcium [Lipitor] 10 mg PO DAILY 10/31/16 [Last Taken 12/03/16 09: 00] Omeprazole 40 mg PO DAILY 09/18/17 [Last Taken Unknown] aspirin 81 mg tablet,delayed release 81 mg PO DAILY #90 tab 01/14/18 [Last Taken Unknown] clonidine HCl 0.1 mg tablet 0.1 mg PO BID 90 Days #180 tab 01/14/18 [Last Taken Unknown] isosorbide mononitrate ER 30 mg tablet,extended release 24 hr 30 mg PO DAILY # 90 tab 01/14/18 [Last Taken Unknown] meloxicam 7.5 mg tablet 7.5 mg PO DAILY #90 tab 01/14/18 [Last Taken Unknown] lisinopril 20 mg tablet 20 mg PO BID #180 tab 01/15/18 [Last Taken Unknown] - History of Present Illness Narrative: Wes is a 77 year old male brought to the ED by ambulance after a brief syncopal episode at home. He was sitting in his chair in his living room at the time. He had reported feeling hot, sweaty and weak just prior to this. He complained of some tightness in his throat at some point and was given a nitroglycerin sublingual tablet by his . On arrival, he did not recognize his when she came into the room. He is currently oriented x4 but reports feeling "weak all over." His reports that he had a similar episode 3 or 4 years ago. They were told at that time that he had a small stroke. Date (Duration): 02/25/18 Time (Timing): 12:00 Prior Episodes: Present: single episode today, remote history Symptoms prior to episode: Present: diaphoresis Activity at time of episode: Present: sitting Character of event: Present: brief (seconds), confused after event Location of Injury: Present: none Current Symptoms: Present: back to normal Prior Treament: Reports: similar symptoms before. Denies: recently seen Review of Systems - Review of Systems Constitutional: Absent: recent illness, fever, chills EYE: Absent: eye pain, vision changes ENT: Absent: ear pain, nose congestion, sore throat Respiratory: Absent: shortness of breath, cough Cardiology: Absent: chest pain, palpitations Gastrointestinal/Abdominal: Absent: nausea, vomiting, diarrhea, abdominal pain Genitourinary: Absent: dysuria, hematuria Musculoskeletal: Present: no symptoms reported Skin: Absent: lesions, lumps, change in color Neurological: Present: weakness. Absent: headache, dizziness/light-headedness, numbness Endocrine: Present: no symptoms reported Hematologic/Lymphatic: Absent: easy bruising, easy bleeding Psych: Present: no symptoms reported Medical History (Last Updated 02/25/18 @ 13:16 by Sis Armenta) GERD (gastroesophageal reflux disease) Hypercholesteremia Hypertension Social History: Preferred Language Japanese Abuse History No History of abuse Psych History Hx of Depression Alcohol Use none Drug Use none Physical Exam - Physical Exam General Appearance: Present: wd/wn, alert, no apparent distress Head Exam: Present: normal inspection, no evidence of injury Eye Exam: Normal inspection: bilateral, PERRL: bilateral, EOMI: bilateral Ears, Nose, Throat: Present: normal ENT inspection, normal pharynx Neck: Present: normal inspection, nontender, supple Respiratory: Present: no respiratory distress, normal breath sounds, no accessory muscle use, lungs clear Cardiovascular/Chest: Present: normal peripheral pulses, bradycardia, systolic murmur Peripheral Pulses: N=norm/S=strong/W=weak/B=bound/A=absent: Dorsalis-pedis (R): Normal, Dorsalis-pedis (L): Normal Gastrointestinal/Abdominal: Present: nontender, nondistended, soft Neurological Exam: Present: alert, oriented, normal mood/affect, no motor/ sensory deficits Skin Exam: Present: normal color, warm/dry ED Progress - Results and Orders Patient's Lab Results:: I have reviewed the patient's lab results. - Vital Signs Patient's Vital Signs:: I have reviewed the patient's vital signs. Vital Signs: Vital Signs 02/25/18 13:10 02/25/18 13:18 02/25/18 13:33 Temperature 36.4 C Pulse Rate 55 L 53 L 52 L Respiratory Rate 23 H 15 21 H Blood Pressure 145/70 135/67 137/67 O2 Sat by Pulse Oximetry 94 94 93 02/25/18 13:51 Temperature Pulse Rate 53 L Respiratory Rate 17 Blood Pressure 121/64 O2 Sat by Pulse Oximetry 93 - X-Ray X-Ray #1 X-Ray: chest Interpretation: Reviewed by me X-ray Comments: No acute cardiopulmonary findings - CT/Ultrasound CT/Ultrasound Narrative: Head CT is without acute intracranial findings - Progress/Reassessment Chief Complaint: General Assessment Progress:: Unchanged Departure Clinical Impression: Syncope Qualifiers: Syncope type: unspecified Qualified Code(s): R55 - Syncope and collapse - Departure Disposition: Still a patient Condition: Stable Referrals: Robbie Zarate MD [Primary Care Provider] -
[2018-02-25 14:17] LABS: Urine Bilirubin Negative (NEGATIVE); Urine Blood Negative /ul (NEGATIVE); Urine Ketone Negative (NEGATIVE); Urine Nitrite Negative (NEGATIVE); Urine Protein Negative (NEGATIVE); Urine Specific Gravity 1.015 SP.GR. (1.005-1.030); Urine Urobilinogen Normal (NORMAL)
[2018-02-25 14:30] LABS: Urine Appearance Clear (CLEAR); Urine Bacteria TRACE; Urine Color Yellow; Urine RBC None Seen /hpf (0-5); Urine WBC None Seen /hpf (0-5)
[2018-02-25 19:00] LABS: Methemoglobin % 0.4 % (0.41-1.15)
[2018-02-25 19:02] LABS: Carboxyhemoglobin % 1.3 % (0.5-1.5)
--- NOTE | 2018-02-25 19:26 | HP ---
Chief Complaint - Chief Complaint Date of Service: 02/25/18 Time of Service: 19:26 Chief Complaint: Almost passed out History of Present Illness: Wes is a 77 yo male that presented to the [facility] ER with reports of almost "blacking out." He reports he was sitting at his desk today when he began to feel lightheaded and had a tingling sensation marquez from his toes to his head. This passed after a few minutes. He and his planned to contact the clin about the episode tomorrow. Soon he began having a return of the symptoms to a much stronger level. He reports that he kept wanting to lean to the side and fall asleep. He could not keep himself awake on his own. His began slapping him in the face just to keep him from passing out. It helped and he never did lose consciousness. By the time he arrived at the ER the symptoms were gone and he was back to normal. He currently has no symptoms to report and feels fine. He and his report a similar episode about 4 years ago. He never figured out what caused that episode. He reports a leaky valve that is followed by cardiology. His last echo was about a few months ago. He is currently getting an echo every 6 months. Medical History (Last Updated 02/25/18 @ 23:55 by Nicho Muñoz DO) GERD (gastroesophageal reflux disease) Hypercholesteremia Hypertension Surgical History: Surgical History (Last Updated 02/25/18 @ 23:55 by Nicho Muñoz DO) Not contributory Family History: Family History (Last Updated 02/25/18 @ 23:56 by Nicho Muñoz DO) Other not contributory Social History: Patient Lives/Resources With Spouse Utilized Occupation [employer] Retired Preferred Language Yakut Do you have any presybeterian or No cultural preference? Smoking Status Former smoker Have you smoked in the past 12 No months Abuse History No History of abuse Psych History Hx of Depression Alcohol Use none Drug Use none Review Of Systems (GEN) - Review of Systems Generalized/Overall Review: Present: Weakness, Fatigue EENTM: Present: No Symptoms Reported Respiratory: Present: No Symptoms Reported Cardiac: Absent: Chest Pain, Edema, Palpitations, Syncope Abdominal: Absent: Nausea, Vomiting, Abdominal Pain Genitourinary: Present: No Symptoms Reported Musculoskeletal: Present: No Symptoms Reported Neurological: Present: Tingling, Weakness. Absent: Headache, Anxiety Skin: Present: No Symptoms Reported Endocrine: Present: No Symptoms Reported Immunizations: IMMUNIZATION HX Immunizations Up to Date Yes History of Influenza Vaccine Yes Hx Pneumococcal Vaccination Yes Allergies/Adverse Reactions: Allergies Allergy/AdvReac Type Severity Reaction Status Date / Time bupropion HCl [From Zyban] Allergy Mild rash/hives Verified 02/25/18 13:14 Iodine and Iodide Containing Allergy Mild Itching Verified 02/25/18 13:14 Produc mupirocin [From Bactroban] Allergy Mild BLISTERS Verified 02/25/18 13:14 mupirocin calcium Allergy Mild BLISTERS Verified 02/25/18 13:14 [From Bactroban] zinc Allergy Mild TOPICAL Verified 02/25/18 13:14 CAUSES RASH Iodinated Contrast- Oral and Allergy Verified 02/25/18 13:14 IV Dye Home Medications: HOME MEDICATIONS Polyethylene Glycol 3350 [Miralax] 17 gm PO DAILY PRN 03/18/13 [Last Taken 08/25] Triamcinolone Acetonide [Kenalog 0.025% Ointment] 1 appl TP BID PRN 03/18/13 [ Last Taken 12/03/16 21:00] Zolpidem Tartrate 10 mg PO HS 03/18/13 [Last Taken 12/03/16 21:00] EPINEPHrine [Epipen 2-Cosmo] 0.3 mg IM ONCE PRN 04/20/15 [Last Taken Unknown] Atorvastatin Calcium [Lipitor] 10 mg PO DAILY 10/31/16 [Last Taken 12/03/16 09: 00] Omeprazole 40 mg PO DAILY 09/18/17 [Last Taken Unknown] aspirin 81 mg tablet,delayed release 81 mg PO DAILY #90 tab 01/14/18 [Last Taken Unknown] clonidine HCl 0.1 mg tablet 0.1 mg PO BID 90 Days #180 tab 01/14/18 [Last Taken Unknown] isosorbide mononitrate ER 30 mg tablet,extended release 24 hr 30 mg PO DAILY # 90 tab 01/14/18 [Last Taken Unknown] meloxicam 7.5 mg tablet 7.5 mg PO DAILY #90 tab 01/14/18 [Last Taken Unknown] lisinopril 20 mg tablet 20 mg PO BID #180 tab 01/15/18 [Last Taken Unknown] Exam - Exam Vital Signs: Vital Signs - Last Taken Temp 36.8 C 02/25/18 16:12 Pulse 53 L 02/25/18 16:12 Resp 16 02/25/18 16:12 BP 146/68 02/25/18 16:12 Pulse Ox 97 02/25/18 16:12 Constitutional: Present: Alert, Oriented x3 ENT Exam: Present: hearing grossly normal Eye Exam: bilateral eye: normal inspection Respiratory: Present: lungs clear, normal breath sounds, no respiratory distress Cardiovascular/Chest: Present: regular rate, rhythm, no edema Peripheral Pulses: radial (R): 2+, radial (L): 2+ Abdomen: Present: Normal bowel sounds, nondistended Extremity: Present: normal inspection Skin Exam: Present: normal color, warm/dry, no cyanosis Neurologic: Present: alert, normal mood/affect, oriented x 3 Appearance: Present: appropriate appearance, appropriate insight Diagnostic Studies: Abnormal Lab Results 02/25/18 02/25/18 02/25/18 Range/Units 13:25 13:25 18:54 RBC 4.22 L (4.7-6.0) M/mm3 Hgb 12.5 L (13.5-18.0) gm/dL Hct 38.6 L (42.0-52.0) % Lymphocytes % 19.6 L (20-51) % Monocytes % 9.1 H (0.0-9) % Lymphocytes # 1.23 L (1.5-3.5) k/mm3 Methemoglobin 0.4 L (0.41-1.15) % Random Glucose 111 H (70-110) mg/dL Albumin 3.2 L (3.4-5.0) gm/dl Laboratory Results WBC 6.3 K/mm3 (4.0-10.5) 02/25/18 13:25 RBC 4.22 M/mm3 (4.7-6.0) L 02/25/18 13:25 Hgb 12.5 gm/dL (13.5-18.0) L 02/25/18 13:25 Hct 38.6 % (42.0-52.0) L 02/25/18 13:25 MCV 91.5 fl (78-100) 02/25/18 13:25 MCH 29.6 pg (27-31) 02/25/18 13:25 MCHC 32.4 g/dl (32-36) 02/25/18 13:25 RDW 13.9 % (11.5-14.0) 02/25/18 13:25 Plt Count 154 K/mm3 (150-450) 02/25/18 13:25 MPV 10.1 fl (8-11.3) 02/25/18 13:25 Immature Gran % (Auto) 0.30 % (0.001-0.429) 02/25/18 13:25 Immature Gran # (Auto) 0.02 K/mm3 (0.000-0.0310) 02/25/18 13:25 Neutrophils % 67.5 % (42-75.0) 02/25/18 13:25 Lymphocytes % 19.6 % (20-51) L 02/25/18 13:25 Monocytes % 9.1 % (0.0-9) H 02/25/18 13:25 Eosinophils % 2.7 % (0.0-3.0) 02/25/18 13:25 Basophils % 0.8 % (0.0-1.0) 02/25/18 13:25 Nucleated RBC % 0.0 k/mm3 (0-1) 02/25/18 13:25 Neutrophils # 4.2 K/mm3 (1.3-6.0) 02/25/18 13:25 Lymphocytes # 1.23 k/mm3 (1.5-3.5) L 02/25/18 13:25 Monocytes # 0.6 k/mm3 (0.0-1.0) 02/25/18 13:25 Eosinophils # 0.2 k/mm3 (0.0-0.7) 02/25/18 13:25 Absolute Basophils 0.1 k/mm3 (0.0-0.1) 02/25/18 13:25 PT 10.4 Seconds (9.0-11.0) 02/25/18 13:25 INR (Anticoag Therapy) 1.04 INR (0.90-1.10) 02/25/18 13:25 PTT ([place]) 25.7 Seconds (24-32) 02/25/18 13:25 Carboxyhemoglobin 1.3 % (0.5-1.5) 02/25/18 18:54 Methemoglobin 0.4 % (0.41-1.15) L 02/25/18 18:54 Sodium 136 mmol/L (132-142) 02/25/18 13:25 Plasma Sodium 136 mmol/L (130-142) 02/25/18 13:25 Potassium 4.5 mmol/L (3.4-4.6) 02/25/18 13:25 Chloride 105 mmol/L (97-106) 02/25/18 13:25 Carbon Dioxide 25.3 mmol/L (24-32.6) 02/25/18 13:25 Anion Gap 10.2 mmol/L (6.8-13.8) 02/25/18 13:25 BUN 19 mg/dL (6-23) 02/25/18 13:25 Creatinine 1.24 mg/dL (0.4-1.4) 02/25/18 13:25 Est GFR (Non-Af Amer) 60 mL/min (60-130) 02/25/18 13:25 BUN/Creatinine Ratio 15.3 (9.0-21.6) 02/25/18 13:25 Random Glucose 111 mg/dL (70-110) H 02/25/18 13:25 Calcium 8.7 mg/dL (7.9-10.9) 02/25/18 13:25 Calcium Adj for Albumin 9.0 mg/dL (8.4-10.2) 02/25/18 13:25 Total Bilirubin 0.6 mg/dL (0.0-1.1) 02/25/18 13:25 AST 17 U/L (0-48) 02/25/18 13:25 ALT 20 U/L (19-67) 02/25/18 13:25 Alkaline Phosphatase 70 U/L (50-170) 02/25/18 13:25 Troponin I 0.041 ng/mL (0.00-0.10) 02/25/18 13:25 Total Protein 6.7 gm/dL (6.2-8.2) 02/25/18 13:25 Albumin 3.2 gm/dl (3.4-5.0) L 02/25/18 13:25 Urine Color Yellow 02/25/18 14:07 Urine Appearance Clear (CLEAR) 02/25/18 14:07 Urine pH 7.0 pH (5.0-7.0) 09/03/18 14:07 Ur Specific [place] 1.015 SP.GR. (1.005-1.030) 02/25/18 14:07 Urine Protein Negative mg/dL (NEGATIVE) 02/25/18 14:07 Urine Glucose (UA) Negative mg/dL (NEGATIVE) 02/25/18 14:07 Urine Ketones Negative mg/dL (NEGATIVE) 02/25/18 14:07 Urine Blood Negative /ul (NEGATIVE) 02/25/18 14:07 Urine Nitrate Negative (NEGATIVE) 02/25/18 14:07 Urine Bilirubin Negative mg/dl (NEGATIVE) 02/25/18 14:07 Urine Urobilinogen Normal EU/dl (NORMAL) 02/25/18 14:07 Ur Leukocyte Esterase Negative /ul (NEGATIVE) 02/25/18 14:07 Urine RBC None seen /hpf (0-5) 02/25/18 14:07 Urine WBC None seen /hpf (0-5) 02/25/18 14:07 Ur Epithelial Cells Trace /hpf (0-5) 02/25/18 14:07 Urine Bacteria Trace (NONE) 02/25/18 14:07 Urine Culture Comments No culture indicated 02/25/18 14:07 Assessment/Plan - Narrative Narrative: Wes is a 77 yo male with pre-syncopal episode. EKG and telemetry have shown sinus bradycardia in the 50s and occasionally 40s. It is possible that his symptoms were caused from a period of extreme bradycardia leading to poor cardiac output. He has a known moderate aortic valve stenosis. The last echo I see is from March 2018, but he reports having one this past spring. He believes it was unchanged and he has another scheduled for this fall. Based on evaluation in the ER there are no other significant abnormalities to explain his symptoms. I suspect his symptoms are cardiac in nature and recommend cardiology follow up. Will admit to observation over night to monitor heart rate and reoccurrence of any symptoms. If he is having significant bradycardia he might need to see cardiology sooner as he is not currently on rate slowing medications. Expect 1 midnight hospital course. - Assessment/Plan (1) Bradycardia Problem: Acute (2) Pre-syncope Problem: Acute
[2018-02-25] MEDS ORDERED: POLYETHYLENE GLYCOL 3350 119 GM BTL PO PRN (21:08)
[2018-02-25] MEDS ORDERED: ZOLPIDEM TARTRATE 10 MG TABLET PO PRN (22:27)
[2018-02-25] MEDS ORDERED: LISINOPRIL 10 MG TABLET ONE (22:30)
[2018-02-25] MEDS ORDERED: ZOLPIDEM TARTRATE 10 MG TABLET ONE (22:30)
[2018-02-25] MEDS: LISINOPRIL 20 MG TABLET PO SCH (22:32)
--- NOTE | 2018-02-26 06:39 | PN ---
Progess Note - Interim Date: 02/26/18 Time: 06:35 Narrative: 02/26/18 06:35 Pt. without complaint this am, except is tired, didn't sleep well. ROS of events reviewed with who is present in the room. PE: Noteable murmur that is harsh 4/6 and heard throughout the chest wall Occ. EEW NABS, tender with guarding LLQ. A/P: Near syncopal episode. though sx very characteristic of a cardiovascular event , BP's never elevated as would be expected in CVA or AMI and labs remained ok. Given his LLQ pain, could be infectious etiology, though WBC wnl. Still will start augmentin and re-evaluate later today. Expect d/c home later today. Depression: may restart zoloft on him at time of discharge.
[2018-02-26] MEDS ORDERED: PANTOPRAZOLE SODIUM 40 MG TABLET.EC PO SCH (07:00)
[2018-02-26] MEDS: LISINOPRIL 20 MG TABLET PO SCH (08:30)
[2018-02-26] MEDS ORDERED: ASPIRIN 81 MG TABLET.DR PO SCH (09:00)
[2018-02-26] MEDS ORDERED: ISOSORBIDE MONONITRATE 30 MG TAB.SR.24H PO SCH (09:00)
[2018-02-26] MEDS ORDERED: AMOX TR/POTASSIUM CLAVULANATE 875 MG TABLET PO SCH (09:00)
[2018-02-26] MEDS ORDERED: ROSUVASTATIN CALCIUM 10 MG TABLET PO SCH ×2 (09:00→21:00)
[2018-02-26] MEDS ORDERED: CLONIDINE HCL 0.1 MG TABLET PO SCH (13:00)
--- NOTE | 2018-02-26 13:05 | DS ---
(1) LLQ abdominal pain Problem: Acute (2) Bradycardia Problem: Acute (3) Pre-syncope Problem: Acute (4) HTN (hypertension) Problem: Chronic Qualifiers: (5) Insomnia Problem: Chronic Qualifiers: Insomnia type: primary Qualified Code(s): F51.01 - Primary insomnia Description of Stay: Pt. admitted for near-syncopal episode, with MS changes that were concerning for possibly ACS or CVA. Sx did resolve quickly with no recurrence while in the hospital, EKG and Trop I and head CT showing no acute changes. His sx, along with the near-syncopal episode included: diaphoresis, generalize tingling and weakness that began in his feet and moved up, nausea, confusion and memory issues. Labs and tests were negative and sx resolved spontaneously and remained resolved. PE did show moderate LLQ pain with palpation, with diverticulitis being in the DDX for cause of his sx, so augmentin was started prior to discharge. No other med changes made. Procedures Performed: none Results and Findings: Lab Pending Results 02/25/18 13:25: WBC 6.3, RBC 4.22 L, Hgb 12.5 L, Hct 38.6 L, MCV 91.5, MCH 29.6 , MCHC 32.4, RDW 13.9, Plt Count 154, MPV 10.1, Immature Gran % (Auto) 0.30, Immature Gran # (Auto) 0.02, Neutrophils % 67.5, Lymphocytes % 19.6 L, Monocytes % 9.1 H, Eosinophils % 2.7, Basophils % 0.8, Nucleated RBC % 0.0, Neutrophils # 4.2, Lymphocytes # 1.23 L, Monocytes # 0.6, Eosinophils # 0.2, Absolute Basophils 0.1 02/25/18 13:25: PT 10.4, INR (Anticoag Therapy) 1.04, PTT ([place]) 25.7 02/25/18 13:25: Sodium 136, Plasma Sodium 136, Potassium 4.5, Chloride 105, Carbon Dioxide 25.3, Anion Gap 10.2, BUN 19, Creatinine 1.24, Est GFR (Non-Af Amer) 60, BUN/Creatinine Ratio 15.3, Random Glucose 111 H, Calcium 8.7, Calcium Adj for Albumin 9.0, Total Bilirubin 0.6, AST 17, ALT 20, Alkaline Phosphatase 70, Troponin I 0.041, Total Protein 6.7, Albumin 3.2 L 02/25/18 14:07: Urine Color Yellow, Urine Appearance Clear, Urine pH 7.0, Ur Specific [place] 1.015, Urine Protein Negative, Urine Glucose (UA) Negative, Urine Ketones Negative, Urine Blood Negative, Urine Nitrate Negative, Urine Bilirubin Negative, Urine Urobilinogen Normal, Ur Leukocyte Esterase Negative, Urine RBC None seen, Urine WBC None seen, Ur Epithelial Cells Trace, Urine Bacteria Trace, Urine Culture Comments No culture indicated 02/25/18 18:54: Carboxyhemoglobin 1.3, Methemoglobin 0.4 L 02/25/18 21:15: Troponin I 0.046 Discharge Location: Home Disposition: Home self-care Condition: Good Discharge Activity: Activity as tolerated Discharge Diet: General/regular food Referrals: Robbie Zarate MD [Primary Care Provider] - One Week Additional Patient Instructions (free text): -Please make TCM appointment unless halfway discharge. Thank you! Laly @ [phone]. Prescriptions (Any new or edited meds): Amox Tr/Potassium Clavulanate [Augmentin 875-125 Tablet] 875 mg PO BID #20 tab Complete Home Medications List: Complete Home Medication List: Polyethylene Glycol 3350 [Miralax] 17 gm PO DAILY PRN 03/18/13 Triamcinolone Acetonide [Kenalog 0.025% Ointment] 1 appl TP BID PRN 03/18/13 Zolpidem Tartrate 10 mg PO HS 03/18/13 EPINEPHrine [Epipen 2-Cosmo] 0.3 mg IM ONCE PRN 04/20/15 Atorvastatin Calcium [Lipitor] 10 mg PO DAILY 10/31/16 Omeprazole 40 mg PO DAILY 09/18/17 aspirin 81 mg tablet,delayed release 81 mg PO DAILY #90 tab 01/14/18 clonidine HCl 0.1 mg tablet 0.1 mg PO BID 90 Days #180 tab 01/14/18 isosorbide mononitrate ER 30 mg tablet,extended release 24 hr 30 mg PO DAILY # 90 tab 01/14/18 meloxicam 7.5 mg tablet 7.5 mg PO DAILY #90 tab 01/14/18 lisinopril 20 mg tablet 20 mg PO BID #180 tab 01/15/18 Amox Tr/Potassium Clavulanate [Augmentin 875-125 Tablet] 875 mg PO BID #20 tab 02/26/18
[2018-02-26 14:31] VITALS: BP 154/73
== END 2018-02-26 14:35 | disposition home or self-care (01) ==
LOC: MS 12:58 → ER 12:58 → MS 16:26
PROVIDERS: ADMIT Family Medicine; ATTEND Family Medicine
DX: R41.3 Other amnesia; R10.32 Left lower quadrant pain; R00.1 Bradycardia, unspecified; R55 Syncope and collapse; I10 Essential (primary) hypertension
CPT/HCPCS: 36415; 70450; 71020; 71046; 80053; 81001; 82375; 84484; 85025; 85610; 85730; 93005; 99284; G0378